=== PATIENT | male | born 1970 | race Caucasian/White ===

== ENCOUNTER 2020-05-29 07:52 | Outpatient (REF) | payer BC, SELFPAY ==
--- NOTE | ~2020-05-29 | MR_ITS ---
EXAMINATION: MR BRAIN WITHOUT AND WITH CONTRAST MR CERVICAL SPINE WITHOUT AND WITH CONTRAST CLINICAL INFORMATION: Left leg twitching and weakness. Multiple sclerosis follow up study. COMPARISON: Prior MRI brain dated 05/23/2018. TECHNIQUE: Multiplanar, multisequential imaging of the brain and cervical spine was obtained without and with intravenous administration of contrast. Intravenous contrast: Intravenous contrast: Gadavist 7 mL. FINDINGS: Brain: The overall pattern of disease is without change. No new lesions are identified. There is no abnormal parenchymal enhancement to suggest active inflammation. Small developmental venous anomaly again visible in the anteroinferior right frontal lobe. No diffusion abnormalities are identified to suggest an acute or subacute infarct. The ventricles are normal in size. No mass effect or midline shift is seen. No extra-axial fluid collections are seen. On postcontrast imaging, there is no abnormal enhancement. The craniovertebral junction, marrow signal, and midline structures are normal. The major intracranial flow voids at the level of the [place] are preserved. The dural venous sinus flow voids are maintained. The mastoid air cells and paranasal sinuses are well aerated. Cervical spine: There is a small T2 hyperintense lesion in the right lateral aspect of the cord at the upper C2 level. There is a small lesion in the left lateral cord at the C5 level. Small lesion also visible in the left ventrolateral aspect of the cord at the C6 level. Small T2 hyperintense lesion in the right paramedian cord at the C6-C7 level. No additional cord lesions are visible. No enhancing lesions identified. The marrow signal is within normal limits. There is a mild retrosubluxation at the C5-C6 level. Moderate chronic degenerative endplate changes and mild to moderate disc space narrowing evident at the C6-C7 level. There are no compression fractures or anterior subluxations. The paraspinal soft tissues are unremarkable. The vertebral artery flow voids are maintained. The imaged portions of the lungs are grossly clear. The C2-C3 and C3-C4 disc spaces are relatively normal in appearance. There is small central disc protrusion at C4-C5 with a retrosubluxation. At the C5-C6 level, there is a right posterolateral disc protrusion mildly impressing upon the ventral cord with moderate bilateral foraminal narrowing and mild endplate spurring. At the C6-C7 level, there is a mild disc bulge and endplate spurring without central canal stenosis. Mild bilateral foraminal narrowing. The C7-T1 disc spaces well-hydrated and normal in appearance. MR/MR head/brain wo/w con IMPRESSION: No evidence of intracranial disease progression. No focal parenchymal enhancement to indicate active inflammation. Few scattered small nonenhancing white matter plaques within the cervical cord as described. No dominant lesion. Shallow right posterolateral disc protrusion at the C5-C6 level with mild ventral cord deformity and moderate bilateral foraminal narrowing. Mild to moderate chronic degenerative endplate changes and disc space narrowing at C6-C7.
[2020-05-29 11:09] LABS: Basophils Percent Auto 0.2 % (0-2); Eosinophils Absolute Auto 0.1 X10*3/uL (0.0-0.4); Eosinophils Percent Auto 1.2 % (0-4); Hematocrit 46.6 % (42-52); Imm Gran Abs Auto 0.02 X10*3/uL (0.00-0.03); Imm Gran Pct Auto 0.5 % (0.0-0.4); Lymphocytes Absolute Auto 0.6 X10*3/uL (1.2-4.9); Lymphocytes Percent Auto 12.9 % (20-40); MANUAL DIFF FLAG SCAN; Mean Corpuscular HGB Conc 34.3 g/dl (31.0-36.0); Mean Corpuscular Volume 90.3 fL (80-98); Mean Platelet Volume 9.1 fL (9.4-12.4); Monocytes Absolute Auto 0.6 X10*3/uL (0.1-1.2); Monocytes Percent Auto 13.1 % (2-11); Neutrophils Absolute Auto 3.1 X10*3/uL (2.0-8.3); Neutrophils Percent Auto 72.1 % (45-73); Platelet Count 209 X10*3/uL (160-400); Red Blood Count 5.16 X10*6/uL (4.60-5.80); Red Cell Distribution Width 11.9 % (11.0-16.0); SCAN SMEAR FLAG 1; White Blood Count 4.3 X10*3/uL (4.8-10.8)
[2020-05-29 11:36] LABS: Alanine Aminotransferase 14 U/L (0-40); Albumin Level 4.9 g/dL (3.5-5.0); Alkaline Phosphatase 62 U/L (39-117); Aspartate Amino Transferase 13 U/L (5-37); Bilirubin Direct 0.4 mg/dL (0.0-0.5); Bilirubin Total 1.4 mg/dL (0.0-1.0); Total Protein 6.9 g/dL (6.5-8.0)
[2020-05-29 11:44] LABS: SLIDE REVIEW VERIFIED
[2020-06-03 21:47] LABS: JCV Antibody POSITIVE; JCV Index Value 0.88
== END 2020-05-29 07:53 | disposition home or self-care (01) ==
LOC: HO.MRI 07:52
PROVIDERS: Visit Provider Psychiatry & Neurology Neurology
DX: G35 Multiple sclerosis (principal)
CPT/HCPCS: 36415; 70553; 72156; 80076; 85025; 86711; A9585